=== PATIENT | female | born 1950 | race Caucasian/White ===

== ENCOUNTER → 2017-08-15 09:56 | Outpatient (CLI) | payer MEDICARE, SELFPAY ==
--- NOTE | 2017-08-15 | DI.CT.S_ITS ---
PROCEDURE: CT UE RT WO CON INDICATIONS: 67 year-old female with right shoulder pain, for possible shoulder arthroplasty. TECHNIQUE: Noncontrast 1-1.5 mm thick sections acquired from the acromioclavicular joint to the inferior scapula, with coronal and sagittal reformatting. COMPARISON: [facility], CT, THORAX WITH CONTRAST, 01/07/2009, 8:03. [facility], CR, SHOULDER MINIMUM 2VIEW RIGHT, 12/29/2008, 12:54. FINDINGS: Image quality: Excellent. Bones: There is significant glenohumeral joint degeneration with diffuse joint narrowing, as well as medial humeral head and neck osteophyte formation. There is extensive heterotopic ossification along the expected position of the anterior, superior, and posterior labrum, extending from the 8:00 to 4:00 positions. Axial images demonstrate approximately 6? of glenoid retroversion. There is mild acromioclavicular joint degeneration. No suspicious lytic or blastic bony lesions. Soft tissues: There is small soft tissue calcification within the anterior portion of the supraspinatus tendon. Sagittal images demonstrate minimal supraspinatus muscle atrophy. No axillary or subclavicular adenopathy. 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 On axial images 129 and 164, several 4 mm lateral right upper lobe nodules appear new since December 2008. IMPRESSION: 1. Significant right glenohumeral joint degeneration, with approximately 6% glenoid retroversion. 2. Extensive heterotopic ossification along the anterior, superior, and posterior labrum, consistent with remote labral injury. 3. Small anterior supraspinatus calcific tendinitis. 4. Several 4 mm lateral right upper lobe nodules appear new since 2008, probably postinflammatory residua. If patient has risk factors for bronchogenic neoplasm, current Fleishner society guidelines (listed below) would recommend 12 month followup noncontrast chest CT. 5. 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 Fleischner Society criteria for SOLID lung nodule followup. Nodule size (mm)Low-risk patientHigh-risk patient<6 (single or multiple)No routine followup.Optional CT at 12 months. 6-8 (single or multiple)CT at 6-12 months, then optional CT at 18-24 mo.CT at 6-12 months, then CT at 18-24 months. >8 (single)CT, PET-CT, or biopsy at 3 months. Same as for low-risk pts. >8 (multiple)CT at 3-6 months, then optional CT at 18-24 mo.CT at 3-6 months, then CT at 18-24 months. Dictated by: Lorenzo Zee M.D. on 08/15/2017 at 10:52 Approved by: Lorenzo Zee M.D. on 08/15/2017 at 11:07
== END ==
PROVIDERS: Visit Provider Orthopaedic Surgery
DX: M19.011 Primary osteoarthritis, right shoulder (principal); M75.31 Calcific tendinitis of right shoulder; R91.8 Other nonspecific abnormal finding of lung field
CPT/HCPCS: 73200

== ENCOUNTER → 2019-11-07 13:41 | Outpatient (CLI) | payer MEDICARE, SELFPAY ==
[2019-11-08 20:48] LABS: COVID19 Sendout Not Detected (Not Detect)
== END ==
PROVIDERS: Visit Provider Physician Assistant
DX: Z11.59 Encounter for screening for other viral diseases (principal)
CPT/HCPCS: 87635

== ENCOUNTER 2019-11-10 10:49 | Day surgery (SDC) | payer MEDICARE, SELFPAY ==
[2019-11-10] MEDS: PROPARACAINE 0.5% OPHTH SOL 2 DROPS EYE-LEFT (11:16)
[2019-11-10 11:20] VITALS: BP 117/67; PULSE 74; RESP 16; TEMP 36.3; O2SAT 100; BMI 30.6
--- NOTE | 2019-11-10 12:42 | PM.PREOP ---
Pre-operative Note Interval Note History & Physical reviewed/Exam performed by Physician: Yes Changes to H&P: No
--- NOTE | 2019-11-10 12:43 | P.OP_ITS ---
Operative Date/Time/Diagnoses Pre-op diagnosis: Nuclear Cataract Left eye Post-op diagnosis: same Procedure & Clinicians Same procedure as scheduled: Yes Surgeon: Chance Garza Anesthesia Type: MAC +/- and Sedation Operative Notes Procedure in detail: Patient brought to the operating suite. Tetracaine drops placed in the left eye. marking instrument was used to emil the vertical and horizontal meridians. Patient was prepped and draped in sterile manner. Wire lid speculum was placed in the eye. Marking instrument was used to emil the 175 degree meridian. Betadine drops were placed on the eye. This was irrigated. Lidocaine jelly was placed on the eye. A paracentesis port was created with a side-port blade. 0.1 mL 1% preservative free lidocaine was injected into the anterior chamber. The anterior chamber was deepened with viscoelastic. 2.6 mm keratome was used to create a temporal clear corneal incision. Cystotome and Utrata forceps were used to create continuous tear capsulorrhexis. Balanced salt solution was used to hydro dissect the nucleus. The phacoemulsification handpiece was inserted and the nucleus was removed using the stop and chop t echnique. The irrigation aspiration handpiece was inserted and the remaining cortex was removed. Anterior chamber was deepened with viscoelastic. An Bae [id number] intraocular lens with a power of 20.5 was injected into the capsular bag. Irrigation aspiration handpiece was inserted and the remaining viscoelastic was removed. The lens was rotated to the 175 degree meridian. Incision was hydrated with balanced salt solution and found to be leak free with pressure with Weck-Marlyn sponges. 0.1 mL Vigamox injected anterior chamber. 0.3 mL Kenalog 10 mg was injected subconjunctivally. Lid speculum was removed. The patient left the operating room in excellent condition. Complications: none Post-operative Condition: stable Disposition: same day surgery
--- NOTE | 2019-11-10 13:03 | SUR.OPER ---
Supine on eye stretcher, head on extension cradle secured with tape. Arms tucked at sides with blanket. Pillow under knees.
[2019-11-10] MEDS: TETRACAINE 0.5% OPHTH DROPS 4 ML 2 DROPS EYE-LEFT (13:07)
[2019-11-10] MEDS: LIDOCAINE JELLY 2% 5 ML 1 APPLIC TOP (13:08)
[2019-11-10] MEDS: CHONDROIDTIN/SOD HYALURONATE 1.05 ML SYRINGE INTRAOCULA (13:08)
[2019-11-10] MEDS: MOXIFLOXACIN INJ 5 MG/ML VIAL EYE-OP (13:09)
[2019-11-10] MEDS: TRIAMCINOLONE 50 MG/5 ML VIAL INJ (13:10)
[2019-11-10] MEDS: PHENYLEPHRINE/LIDOCAINE VIAL (OR) 0.2 ML EYE-OP (13:10)
[2019-11-10] MEDS: BALANCED SALT IRRIG SOLN NO.2 500 ML, EPINEPHrine 1 MG IRR (13:11)
[2019-11-10 13:19] VITALS: BP 113/68; PULSE 64; RESP 16; TEMP 36.3; O2SAT 100
== END 2019-11-10 13:33 | disposition home or self-care (01) ==
PROVIDERS: PCP Nurse Practitioner; Referring Provider Nurse Practitioner; Visit Provider Ophthalmology
PROC: (CPT 66984; principal; 2019-11-10 12:45)
DX: H25.12 Age-related nuclear cataract, left eye (principal); I10 Essential (primary) hypertension; K21.9 Gastro-esophageal reflux disease without esophagitis
CPT/HCPCS: 66984; J0171; J2250; J3301; V2787

== ENCOUNTER → 2019-11-21 09:58 | Outpatient (CLI) | payer MEDICARE, SELFPAY ==
[2019-11-22 09:23] LABS: COVID19 Sendout Not Detected (Not Detect)
== END ==
PROVIDERS: PCP Nurse Practitioner; Visit Provider Physician Assistant
DX: Z11.59 Encounter for screening for other viral diseases (principal)
CPT/HCPCS: 87635

== ENCOUNTER 2019-11-24 10:51 | Day surgery (SDC) | payer MEDICARE, SELFPAY ==
[2019-11-24] MEDS: PROPARACAINE 0.5% OPHTH SOL 2 DROPS EYE-OP (11:09)
[2019-11-24 11:10] VITALS: BP 140/71; PULSE 65; RESP 16; TEMP 36.1; O2SAT 98
[2019-11-24] MEDS: CATARACT EYE COMPOUND (10 DROPS/SYRINGE) 3 DROPS EYE-OP (11:12)
[2019-11-24 11:13] VITALS: BMI 30.4
--- NOTE | 2019-11-24 11:32 | P.OP_ITS ---
Operative Date/Time/Diagnoses Pre-op diagnosis: Nuclear cataract right eye Procedure & Clinicians Procedure: Cataract Surgery Same procedure as scheduled: Yes Surgeon: Chance Garza Anesthesia Type: MAC +/- and Sedation Operative Notes Procedure in detail: Patient brought to the operating suite. Tetracaine drops placed in the right eye. Marking instrument was used to emil the vertical and horizontal meridians. Patient was prepped and draped in sterile manner. Wire lid speculum was placed in the eye. Marking instrument was used to emil the 25 degree meridian. Betadine drops were placed on the eye. This was irrigated. Lidocaine jelly was placed on the eye. A paracentesis port was created with a side-port blade. 0.1 mL 1% preservative free lidocaine was injected into the anterior chamber. The anterior chamber was deepened with viscoelastic. 2.6 mm keratome was used to create a temporal clear corneal incision. Cystotome and Utrata forceps were used to create continuous tear capsulorrhexis. Balanced salt solution was used to hydro dissect the nucleus. The phacoemulsification handpiece was inserted and the nucleus was removed using the stop and chop technique. The irrigation aspiration handpiece was inserted and the remaining cortex was removed. Anterior chamber was deepened with viscoelastic. An Bae [id number] intraocular lens with a power of 21.0 was injected into the capsular bag. Irrigation aspiration handpiece was inserted and the remaining viscoelastic was removed. The lens was rotated to the 25 degree meridian. Incision was hydrated with balanced salt solution and found to be leak free with pressure with Weck- Marlyn sponges. 0.1 mL Vigamox injected anterior chamber. 0.3 mL Kenalog 10 mg was injected subconjunctivally. Lid speculum was removed. The patient left the operating room in excellent condition. Complications: none Post-operative Condition: stable Disposition: same day surgery
--- NOTE | 2019-11-24 11:32 | PM.PREOP ---
Pre-operative Note Interval Note History & Physical reviewed/Exam performed by Physician: Yes Changes to H&P: No
[2019-11-24] MEDS: TRIAMCINOLONE 50 MG/5 ML VIAL INJ (11:50)
[2019-11-24] MEDS: LIDOCAINE JELLY 2% 5 ML 1 APPLIC TOP (11:50)
[2019-11-24] MEDS: PHENYLEPHRINE/LIDOCAINE VIAL (OR) 0.2 ML EYE-OP (11:51)
[2019-11-24] MEDS: CHONDROIDTIN/SOD HYALURONATE 1.05 ML SYRINGE INTRAOCULA (11:51)
[2019-11-24] MEDS: MOXIFLOXACIN INJ 5 MG/ML VIAL EYE-OP (11:51)
[2019-11-24] MEDS: TETRACAINE 0.5% OPHTH DROPS 4 ML 2 DROPS EYE-OP (11:52)
[2019-11-24] MEDS: BALANCED SALT IRRIG SOLN NO.2 500 ML, EPINEPHrine 1 MG IRR (11:52)
[2019-11-24 12:03] VITALS: BP 115/71; PULSE 65; RESP 12; TEMP 36.7; O2SAT 100
[2019-11-24 12:15] VITALS: BP 134/81; PULSE 67; RESP 20; TEMP 37; O2SAT 98
== END 2019-11-24 12:20 | disposition home or self-care (01) ==
PROVIDERS: PCP Nurse Practitioner; Referring Provider Nurse Practitioner; Visit Provider Ophthalmology
PROC: (CPT 66984; principal; 2019-11-24 12:45)
DX: H25.11 Age-related nuclear cataract, right eye; I10 Essential (primary) hypertension; Z85.828 Personal history of other malignant neoplasm of skin
CPT/HCPCS: 66984; J0171; J2250; J3301; V2787